=== PATIENT | male | born 1945 | race Caucasian/White ===

== ENCOUNTER → 2016-11-27 | Outpatient (CLI) | payer OTHER ==
[~2016-11-27] MED LIST: ALBU18002 INH; ASPI1TAB83 PO; ATOR-26 PO; BICA50TA6 PO; CALC0.2510 PO; CARV25TA2 PO; CHOL100027 PO; FEBU40TA PO; FENO67CA2 PO; GABA-113 PO; HYDR-4715 PO; IMDSR60 PO; INSDGI SC; ISOS60TA25 PO; LACT12LO28 TOP; LSX80 PO; MCRK20 PO; NTRGSL/4 UT; NVLGI SC; OXYC-57 PO; PLV75 PO; REGULAR INSULIN SQ; TERA1CAP63 PO; TORS20TA2 PO; WARF10TA4 PO; WARF7.5T4 PO; ZRX5 PO; [UNRECOGNIZED DRUG - CODE] IM
[2016-11-27 13:32] LABS: BLOOD UREA NITROGEN 67 mg/dl (7-18); BUN/CREATININE RATIO 17.2 (10-20); CALCIUM 8.5 mg/dl (8.5-10.1); CARBON DIOXIDE 31 mmol/L (21-32); CHLORIDE 103 mmol/L (98-107); GLUCOSE 377 mg/dl (70-99); MAGNESIUM 2.1 mg/dl (1.8-2.4); SODIUM 141 mmol/L (136-145)
[2016-11-27 13:46] LABS: BETA-HYDROXYBUTYRATE 1.19 mg/dL (0.2-2.81)
== END | disposition home or self-care (01) ==
LOC: C.LABMFLN 10:31
PROVIDERS: ATTEND Physician Assistant Medical
DX: I50.22 Chronic systolic (congestive) heart failure (principal)

== ENCOUNTER 2017-05-29 11:06 | Day surgery (SDC) | payer OTHER ==
[2017-05-21 13:35] VITALS: BMI 46.0
--- NOTE | 2017-05-21 14:38 | PAT Medication Instructions ---
Service Date May 21, 2017. Current Home Medication List Albuterol Sulfate (Proair Respiclick), 2 SPRAY INH Q4 PRN for SOB/Wheezing Aspirin (Aspirin), 81 MG PO HS Atorvastatin (Lipitor), 80 MG PO HS Calcitriol (Rocaltrol Cap), 0.25 MCG PO QAM Carvedilol (Coreg), 37.5 MG PO BID Clopidogrel Bisulfate (Clopidogrel), 75 MG PO QAM Febuxostat (Uloric), 1 TAB PO QAM Gabapentin (Neurontin), 900 MG PO TID Hydralazine Hcl (Apresoline), 10 MG PO TIDM Insulin Glargine (Lantus), 80 UNITS SC QAM Isosorbide Mononitrate Ext Rel (Imdur Ext Rel), 60 MG PO QAM Lactic Acid (Ammonium Lactate) (Ammonium Lactate), 1 DOSE TOP UD Metolazone (Metolazone), 1 TAB PO QAM Nitroglycerin (Nitrostat), 0.4 MG UT PRN Potassium Chloride (Klor-Con), 40 MEQ PO BID Torsemide (Demadex), 100 MG PO QAM Warfarin Sod (Jantoven), 7.5 MG PO S,M,T,R,F,SA,MCCARTHY Warfarin Sod (Jantoven), 10 MG PO WED [Regular Insulin], 1 DOSE SQ AC PRN for SLIDING SCALE Medication Instructions For Your Scheduled Surgery - Follow surgeon's instructions for: Warfarin Sod (Jantoven), 7.5 MG PO S,M,T,R,F,SA,MCCARTHY Warfarin Sod (Jantoven), 10 MG PO WED Clopidogrel Bisulfate (Clopidogrel), 75 MG PO QAM Aspirin (Aspirin), 81 MG PO HS -Continue as directed: Nitroglycerin (Nitrostat), 0.4 MG UT PRN - Hold the following medications the morning of surgery: [Regular Insulin], 1 DOSE SQ AC PRN for SLIDING SCALE Potassium Chloride (Klor-Con), 40 MEQ PO BID Torsemide (Demadex), 100 MG PO QAM Lactic Acid (Ammonium Lactate) (Ammonium Lactate), 1 DOSE TOP UD Metolazone (Metolazone), 1 TAB PO QAM Calcitriol (Rocaltrol Cap), 0.25 MCG PO QAM - Take the following medications the morning of surgery with a sip of water: Isosorbide Mononitrate Ext Rel (Imdur Ext Rel), 60 MG PO QAM Carvedilol (Coreg), 37.5 MG PO BID Gabapentin (Neurontin), 900 MG PO TID Febuxostat (Uloric), 1 TAB PO QAM Hydralazine Hcl (Apresoline), 10 MG PO TID Albuterol Sulfate (Proair Respiclick), 2 SPRAY INH Q4 PRN for SOB/Wheezing (if needed, also BRING WITH YOU THE MORNING OF SURGERY) - Take the following medications as scheduled the night before surgery: Atorvastatin (Lipitor), 80 MG PO HS Hydralazine Hcl (Apresoline), 10 MG PO TID Potassium Chloride (Klor-Con), 40 MEQ PO BID Albuterol Sulfate (Proair Respiclick), 2 SPRAY INH Q4 PRN for SOB/Wheezing Carvedilol (Coreg), 37.5 MG PO BID Gabapentin (Neurontin), 900 MG PO TID - For Insulin Dependent Diabetic patients: Test blood sugar A.M. of surgery. - If BLOOD SUGAR IS GREATER THAN 150, take half of your regular dose of: Insulin Glargine (Lantus), 80 UNITS SC QAM - If BLOOD SUGAR IS LESS THAN 150, do not take any: Insulin Glargine ( Lantus), 80 UNITS SC QAM If you have any questions please call us at [phone] or [phone] or [phone]
[2017-05-21 14:57] LABS: BASO % 0.8 %; BASO ABS # 0.04 K/uL (0-0.2); COMPLETE YES; EOS % 1.8 %; HEMATOCRIT 29.6 % (42-52); IG% 0.8 %; LYMPH % 15.6 %; LYMPH ABS # 0.77 K/uL (1.2-3.4); MEAN CELL VOLUME 88.4 fL (80-100); MEAN CORPUSCULAR HGB CONC 32.8 g/dl (32-36); MEAN PLATELET VOLUME 11.1 fL (7.4-10.4); MONO % 8.3 %; NEUT % 72.7 %; PLATELET COUNT 172 K/uL (130-400); RED BLOOD COUNT 3.35 M/uL (4.7-6.1); WHITE BLOOD COUNT 4.95 K/uL (4.8-10.8)
[2017-05-21 15:05] LABS: BUN/CREATININE RATIO 20.4 (10-20); CALCIUM 8.7 mg/dl (8.5-10.1); CREATININE 3.3 mg/dl (0.60-1.40); INR 2.3 (0.9-1.1); PARTIAL THROMBOPLASTIN RATIO 1.5; POTASSIUM 2.7 mmol/L (3.5-5.1); PROTHROMBIN TIME (PATIENT) 25.8 SECONDS (9.0-12.0)
[~2017-05-29] VITALS: Ht 170.2 cm; Wt 134.2 kg
--- NOTE | 2017-05-29 06:18 | History and Physical ---
History & Physical Date of Service May 29, 2017. History & Physical CC: End stage renal disease HPI: Mr. Ignacio is a 71-year-old gentleman with chronic kidney disease who is approaching dialysis. A fistula was recommended. He has a history of type 2 diabetes. He does have neuropathy and retinopathy, along with renal calculi. He also has hypertension, coronary occlusive disease with an ejection fraction of 25-30% with concentric LVH on an echo done in 2013. He has hyperlipidemia. He is status post knee surgery, patella surgery, and BPH. He also has a history of prostatic cancer with x-ray treatment. He does have cardiac stents with a history of 4 MIs, according to the patient and a recent stroke this year. ALLERGIES: No known drug allergies. PAST MEDICAL HISTORY: As stated above is positive for heart disease, hypertension, diabetes, stroke, and renal disease. PAST SURGICAL HISTORY: Includes cardiac stenting, knee surgery, patellar surgery, and x-ray treatment for prostate cancer. MEDICATIONS: Reviewed. He is on numerous medications. No changes were made. REVIEW OF SYSTEMS: Positive for occasional chest pain and shortness of breath, gout, joint swelling, loss of appetite, food intolerance, diarrhea, prostate cancer, and in the HPI. PHYSICAL EXAMINATION: The patient is awake, oriented x3. He is morbidly obese. His blood pressure is 132/60 on the right, 126/54 on the left. Head and neck: carotids, radials and superficial temporal arteries are +2 bilaterally and there are no carotid bruits. Lungs are clear. Heart regular rate and rhythm. Abdominal exam is benign. I cannot appreciate an aortic pulsation due to body habitus. Femorals are +2 bilaterally. Noninvasives done today showed a cephalic vein in the left arm, which is usable at the wrist for a fistula creation. He also is right-handed. ASSESSMENT: Chronic kidney disease. RECOMMENDATIONS: At this point, I recommended a left wrist AV fistula. The patient understood the risks, options, benefits, and agreed to go ahead with this procedure.
[~2017-05-29 11:06] MED LIST changes: -BICA50TA6 PO; +CEFAZOLIN 3000 MG/65 ML D5W 65 ML IV SCH; -CHOL100027 PO; -FENO67CA2 PO; -IMDSR60 PO; -LSX80 PO; +NSS 1000ML IV SCH; -NVLGI SC; -OXYC-57 PO; +SODIUM CHLORIDE 0.9% 1000ML 1,000 ML IV SCH; -TERA1CAP63 PO; -[UNRECOGNIZED DRUG - CODE] IM
--- NOTE | 2017-05-29 11:11 | History & Physical Bridge Note ---
H&P Re-Evaluation Bridge Note: I have examined the patient, reviewed the History & Physical and in the interval since the performance of the History & Physical I have noted the following changes of clinical significance: No changes noted
[2017-05-29 11:54] VITALS: BP 149/63; PULSE 68; TEMP 36.7; O2SAT 98; Ht 170.2 cm; Wt 134.2 kg
[2017-05-29] MEDS ORDERED: PROPOFOL IV EMULSION 10 MG/ML 20 ML VIAL IV ONE (12:27)
[2017-05-29] MEDS ORDERED: FENTANYL CITRATE INJ 50 MCG/1 ML 2 ML VIAL ONE (12:27)
[2017-05-29] MEDS ORDERED: MIDAZOLAM HCL 1 MG/ML 2ML VIAL ONE (12:27)
[2017-05-29] MEDS ORDERED: LIDOCAINE HCL 2% 2 ML VIAL (20MG/ML) ONE (12:27)
[2017-05-29] MEDS ORDERED: ONDANSETRON INJ 2 MG/ML 2 ML VIAL IV PRN (12:30)
[2017-05-29] MEDS ORDERED: EpHEDrine SULFATE INJ 50 MG/ML AMP IV PRN (12:30)
[2017-05-29] MEDS ORDERED: FENTANYL CITRATE INJ 50 MCG/1 ML 2 ML VIAL IV PRN (12:30)
[2017-05-29] MEDS ORDERED: ATROPINE SULFATE 0.1 MG/ML 5ML SYR IV PRN (12:30)
[2017-05-29 12:41] LABS: INR 1.7 (0.9-1.1); PARTIAL THROMBOPLASTIN RATIO 1.3; PROTHROMBIN TIME (PATIENT) 18.7 SECONDS (9.0-12.0)
[2017-05-29 12:51] LABS: BUN/CREATININE RATIO 19.3 (10-20); CALCIUM 8.5 mg/dl (8.5-10.1); CREATININE 2.6 mg/dl (0.60-1.40); POTASSIUM 3.1 mmol/L (3.5-5.1)
[2017-05-29] MEDS ORDERED: LIDOCAINE HCL 1% 20 ML VIAL ONE (13:31)
[2017-05-29] MEDS ORDERED: THROMBIN FOR SOLN 20000 UNIT KIT ONE (13:31)
[2017-05-29] MEDS ORDERED: BUPIVACAINE/EPINEPHRINE 0.5% MPF 1:200,000 30 ML VIAL ONE (13:31)
[2017-05-29] MEDS ORDERED: GELATIN SPONGE 12-7MM ONE (13:31)
[2017-05-29] MEDS ORDERED: HEPARIN SOD (PORCINE) 1000 UNIT/ML 10 ML VIAL ONE (13:32)
--- NOTE | 2017-05-29 14:58 | [facility] Post Operative Brief Note ---
Immediate Operative Summary Operative Date May 29, 2017. Pre-Operative Diagnosis End Stage Renal Disease Post-Operative Diagnosis End Stage Renal Disease Procedure(s) Performed Left Wrist Arteriovenous Fistula Creation Surgeon Dr. Jenkins Project Estimator Surgeon(s) Dr. Lakhani Estimated Blood Loss 10 ML Findings good thrill Specimens None per surgeon Anesthesia MAC Complication(s) None Disposition Recovery Room / PACU
[2017-05-29] MEDS ORDERED: OXYC-57 PO (15:00)
--- NOTE | 2017-05-29 15:02 | Discharge Instructions ---
Discharge Instructions Date of Service May 29, 2017. Visit Reason for Visit: End Stage Renal Disease Discharge Discharge Diagnosis / Problem: End stage renal disease Discharge Goals Goal(s): Therapeutic intervention Activity Recommendations Activity Limitations: per Instructions/Follow-up section Lifting Limitations: none Exercise/Sports Limitations: as tolerated Shower/Bathe: tomorrow Driving or Machine Use: resume 1 day after discharge Anesthesia . Post Anesthesia Instructions: If you have had General Anesthesia or IV Sedation: * Do not drive today. * Resume driving when surgeon permits. * Do not make important decisions or sign legal documents today. * Call surgeon for: 1. Temperature elevations greater than 101 degrees F. 2. Uncontrollable pain. 3. Excessive bleeding. 4. Persistent nausea and vomiting. 5. Medication intolerance (nausea, vomiting or rash). * For nausea and vomiting use only clear liquids such as: tea, soda, bouillon until nausea subsides, then gradually increase diet as tolerated. * If you have any concerns or questions, call your surgeon's office. If physician is unavailable and it is an emergency, call 911 or go to the nearest emergency room. . Instructions / Follow-Up Instructions / Follow-Up Call [phone] to schedule a follow up appointment if one not already scheduled. ACTIVITY RECOMMENDATIONS: See Above SPECIAL CARE INSTRUCTIONS: Call your doctor if: * Temperature above 101 degrees * Pain not relieved by pain medicine ordered * There is increased drainage or redness from any incision * You have any unanswered questions or concerns. Diet Recommendations Recommended Home Diet: resume previous diet Procedures Procedures Performed: Left Wrist Arteriovenous Fistula Creation Pending Studies Studies pending at discharge: no Medical Emergencies . Who to Call and When: Medical Emergencies: If at any time you feel your situation is an emergency, please call 911 immediately. . Non-Emergent Contact Non-Emergency issues call your: Surgeon . . "Provider Documentation" section prepared by Abilio Jenkins. .
--- NOTE | 2017-05-29 15:13 | Anesthesiology Progress Note ---
Anesthesia Post Op Note Date & Time May 29, 2017 at 15:13 Vital Signs Pain Intensity: 0 Vital Signs Past 12 Hours Date Time Temp Pulse Resp B/P (MAP) Pulse Ox O2 Delivery O2 Flow Rate FiO2 05/29/17 11:54 36.7 68 20 149/63 (91) 98 Room Air Notes Mental Status: alert / awake / arousable, participated in evaluation Pt Amnestic to Procedure: No Nausea / Vomiting: adequately controlled Pain: adequately controlled Airway Patency, RR, SpO2: stable & adequate BP & HR: stable & adequate Hydration State: stable & adequate Anesthetic Complications: no major complications apparent Anesthetic Complications: No complications - level of amnesia appropriate for MAC
[2017-05-29] MEDS ORDERED: OXYCODONE/ACETAMINOPHEN 5-325 TAB PO PRN (15:15)
[2017-05-29] MEDS ORDERED: PERCOCET HOME PACK PO ONE (15:15)
[2017-05-29 15:38] VITALS: BP 137/59; PULSE 69; TEMP 36.6; O2SAT 92
--- NOTE | 2017-05-29 15:52 | OPERATIVE REPORT ---
DATE OF OPERATION: 05/29/2017 PREOPERATIVE DIAGNOSIS: End-stage renal disease. POSTOPERATIVE DIAGNOSIS: Same. PROCEDURE: Left wrist radiocephalic fistula. SURGEON: Dr. Abilio Jenkins. BELLOWS CHARGER ASSEMBLER: Dr. Anna Lakhani. ANESTHESIA: Local plus conscious sedation. ESTIMATED BLOOD LOSS: 10 mL. COMPLICATIONS: None apparent. CONDITION: Stable to PACU. INDICATIONS: Mr. Ignacio is a 71-year-old male with end stage renal disease not yet on hemodialysis thought needed in the near future. It was recommended that he undergo permanent hemodialysis access placement. He was advised of the risks and benefits of undergoing a fistula and agreed to undergo this procedure. PROCEDURE: The patient was brought into the operative suite. He was prepped and draped in the usual fashion. Timeout occurred. A longitudinal incision was made in between his cephalic vein and his radial artery. His cephalic vein was identified and dissected out. All branches were ligated. Then attention was turned to his radial artery. This was dissected out. The cephalic vein was ligated distally and transected. This was then inflated with Heparinized saline which the vein distended nicely. The vein was found to be of adequate size. Attention as returned back to the artery. Proximal and distal control were obtained with samll angled DeBakey clamps. Arteriotomy was performed with an 11 blade and extended with Arambula. The cephalic vein was then sewn on with an end-to-side fashion with a Prolene suture. It was inspected for hemostasis which was obtained. There was a good thrill in the fistula. His hand was warm and pink. The wound was closed with 3-0 and 4-0 Vicryl. The patient was then transported to PACU in stable condition. Dr. Abilio Jenkins was present and scrubbed for the entirety of this case. I, Dr. Jenkins was present and scrubbed for the entire procedure. I attest to the content of the Intraoperative Record and any orders documented therein. Any exceptions are noted below. [facility] CENT[facility]
[2017-05-29 16:00] VITALS: BP 149/63; PULSE 69; TEMP 36.6; O2SAT 91
== END 2017-05-29 16:00 | disposition home or self-care (01) ==
LOC: C.ACU 11:06
PROVIDERS: ATTEND Surgery Vascular Surgery
DX: N18.6 End stage renal disease (principal); E11.40 Type 2 diabetes mellitus with diabetic neuropathy, unspecified; E11.319 Type 2 diabetes mellitus with unspecified diabetic retinopathy without macular edema; E11.22 Type 2 diabetes mellitus with diabetic chronic kidney disease; I25.10 Atherosclerotic heart disease of native coronary artery without angina pectoris; E78.5 Hyperlipidemia, unspecified; I12.0 Hypertensive chronic kidney disease with stage 5 chronic kidney disease or end stage renal disease; Z85.46 Personal history of malignant neoplasm of prostate

== ENCOUNTER 2017-12-05 17:07 | Inpatient (IN) | payer OTHER ==
[~2017-12-05] VITALS: Ht 172.7 cm; Wt 132.3 kg
[~2017-12-05 17:07] MED LIST changes: -CEFAZOLIN 3000 MG/65 ML D5W 65 ML IV SCH; -NSS 1000ML IV SCH; -SODIUM CHLORIDE 0.9% 1000ML 1,000 ML IV SCH; -TORS20TA2 PO
[2017-12-05 19:40] VITALS: BP 191/86; PULSE 76; TEMP 36.5; O2SAT 90; BMI 45.6
[2017-12-05] MEDS ORDERED: GLUCOSE 40% GEL 15 GM TUBE PO PRN (20:45)
[2017-12-05] MEDS ORDERED: GLUCOSE 10 TABS/TUBE PO PRN (20:45)
[2017-12-05] MEDS ORDERED: DEXTROSE 50% 50 ML SYR IV PRN (20:45)
[2017-12-05] MEDS ORDERED: GLUCAGON FOR INJ 1 MG VIAL SQ PRN (20:45)
[2017-12-05] MEDS ORDERED: ONDANSETRON 8MG OD TAB PO PRN (20:45)
[2017-12-05 21:08] LABS: BASO % 0.7 %; BASO ABS # 0.03 K/uL (0-0.2); EOS % 2.2 %; EOS ABS # 0.09 K/uL (0-0.5); HEMOGLOBIN 11.2 g/dL (14.0-18.0); IG# 0.04 K/uL (0.00-0.02); LYMPH % 17.9 %; LYMPH ABS # 0.73 K/uL (1.2-3.4); MEAN CELL VOLUME 85.1 fL (80-100); MEAN CORPUSCULAR HEMOGLOBIN 28.9 pg (25-34); MEAN PLATELET VOLUME 10.3 fL (7.4-10.4); MONO % 8.6 %; MONO ABS # 0.35 K/uL (0.11-0.59); NEUT % 69.6 %; NEUT ABS # 2.83 K/uL (1.4-6.5); PLATELET COUNT 127 K/uL (130-400); RED CELL DISTRIBUTION WIDTH CV 16.1 % (11.5-14.5); RED CELL DISTRIBUTION WIDTH SD 49.4 fL (36.4-46.3); WHITE BLOOD COUNT 4.07 K/uL (4.8-10.8)
[2017-12-05 21:10] LABS: MEAN CORPUSCULAR HGB CONC 33.9 g/dl (32-36)
[2017-12-05] MEDS: INSULIN ASPART 100 UNITS/ML 3 ML PEN SC SCH ×2 (21:20→23:58)
[2017-12-05 21:32] LABS: ALBUMIN 3.1 gm/dl (3.4-5.0); CALCIUM 8.1 mg/dl (8.5-10.1); CKMB 10.8 ng/ml (0.5-3.6); CREATININE 2.89 mg/dl (0.60-1.40); POTASSIUM 3.6 mmol/L (3.5-5.1); TOTAL PROTEIN 6.9 gm/dl (6.4-8.2)
[2017-12-05] MEDS ORDERED: ALBUTEROL HFA 8 GM INHALER INH PRN (21:45)
[2017-12-05] MEDS ORDERED: REGULAR INSULIN SQ PRN (21:45)
[2017-12-05] MEDS ORDERED: NITROGLYCERIN 0.4 MG SL PER TAB CHARGE UT SCH (21:45)
[2017-12-05] MEDS ORDERED: PHARMACY GLYCEMIC MGMT CONSULT PRN (22:00)
--- NOTE | 2017-12-05 22:13 | DIAGNOSTIC IMAGING REPORT ---
CHEST ONE VIEW PORTABLE CLINICAL HISTORY: 72 years-old Male presenting with nstemi. TECHNIQUE: Portable upright AP view of the chest was obtained. COMPARISON: 06/12/2014. FINDINGS: Atherosclerosis of aortic arch. Cardiac silhouette mildly enlarged. Bandlike opacity at the right lung base with elevation of the right hemidiaphragm unchanged. No large pleural effusion or pneumothorax. Osseous structures normal. IMPRESSION: 1. Mild cardiomegaly. No gross evidence of volume overload or pulmonary edema. 2. Right basilar scarring or atelectasis. No convincing evidence of acute cardiopulmonary disease. Electronically signed by: Mendez Arevalo M.D. 12/05/2017 10:11 PM Dictated Date/Time: 12/05/2017 10:10 PM
[2017-12-05 22:26] LABS: INR 2.2 (0.9-1.1); PTT PATIENT 37.4 SECONDS (21.0-31.0)
[2017-12-05 23:39] VITALS: BP 168/77; PULSE 68; TEMP 36.9; O2SAT 96
[2017-12-06] MEDS: GABAPENTIN 300 MG CAP PO SCH ×2 (00:08→14:27)
[2017-12-06] MEDS: HydrALAZINE 10 MG TAB PO SCH ×2 (00:12→12:13)
--- NOTE | 2017-12-06 03:07 | History and Physical ---
History & Physical Date & Time of Service: Dec 06, 2017 at 02:31 Chief Complaint: Advanced Kidney Disease, Chest Pain, Positive Primary Care Physician: Anya Black History of Present Illness Source: patient 72M with a PMhx of CAD w stent, VT, h/o prostate CA, DM2 w AV Fistula in left arm, DIANE, CHF, HTN and CHF presents as a transfer from [facility]. Pt states that he got an ache like chest pain that radiated down his right arm starting this morning. Pt states that the ache was constant and only went away after he got to the [place] ER around 10am. He doesn't remember what medication he received that made his pain go away. Patient was in his kitchen when the pain started around 7am. He wasn't doing anything particularly stressful. He hasn't had chest or arm pain since 10am. The patient has had an VT in the past and states that his cardiac pain is distinctly different than the pain the occurred earlier this AM. Past Medical/Surgical History Medical Problems: (1) Chest pain (2) Chest pain (3) CHF (congestive heart failure) (4) Coronary artery disease (5) Diabetes (6) Elevated troponin (7) Non-ST elevated myocardial infarction (non-STEMI) (8) NSTEMI (non-ST elevated myocardial infarction) (9) Prostate cancer (10) Renal insufficiency Surgical Problems: (1) Stented coronary artery Family History noncontributory Social History Smoking Status: Never Smoker Smokeless Tobacco Use: No Alcohol Use: none Drug Use: none Marital Status: Housing status: lives with family Occupational Status: retired Immunizations History of Influenza Vaccine: Yes History of Tetanus Vaccine?: Yes Tetanus Immunization Date: Nov 02, 2002 History of Pneumococcal: Yes Pneumococcal Date: Nov 01, 2006 History of Hepatitis B Vaccine: Unknown Allergies Coded Allergies: No Known Allergies (Unverified , 05/29/17) Home Medications Scheduled Aspirin (Aspirin), 81 MG PO HS Atorvastatin (Lipitor), 80 MG PO HS Calcitriol (Rocaltrol Cap), 0.25 MCG PO QAM Carvedilol (Carvedilol), 50 MG PO BID Clopidogrel Bisulfate (Clopidogrel), 75 MG PO QAM Febuxostat (Uloric), 1 TAB PO QAM Gabapentin (Neurontin), 900 MG PO TID Hydralazine Hcl (Apresoline), 10 MG PO TIDM Insulin Glargine (Lantus), 60 UNIT SC QAM Insulin Regular (Human) (Humulin R U-500 Kwikpen), 100 UNITS SQ QDB Insulin Regular (Human) (Humulin R U-500 Kwikpen), 100 UNITS SQ QDL Insulin Regular (Human) (Humulin R U-500 Kwikpen), 125 UNITS SQ QDD Isosorbide Mononitrate Ext Rel (Imdur Ext Rel), 60 MG PO QAM Lactic Acid (Ammonium Lactate) (Ammonium Lactate), 1 DOSE TOP UD Metolazone (Metolazone), 1 TAB PO QAM Nitroglycerin (Nitrostat), 0.4 MG UT PRN Potassium Chloride (Klor-Con), 40 MEQ PO BID Warfarin Sod (Jantoven), 7.5 MG PO S,M,T,R,F,SA,MCCARTHY Warfarin Sod (Jantoven), 10 MG PO WED Scheduled PRN Albuterol Sulfate (Proair Respiclick), 2 SPRAY INH Q4 PRN for SOB/Wheezing Review of Systems Constitutional: No fever, No chills, No sweats ENT: No hearing loss Respiratory: No cough, No sputum, No wheezing, No shortness of breath Cardiovascular: + chest pain, No edema Abdomen: No pain, No nausea, No vomiting, No diarrhea, No constipation Neurologic: No memory loss Endocrine: No fatigue Integumentary: No rash Physical Exam Vital Signs Date Time Temp Pulse Resp B/P (MAP) Pulse Ox O2 Delivery O2 Flow Rate FiO2 12/06/17 00:00 Nasal Cannula 3.0 12/05/17 23:39 36.9 68 22 168/77 (107) 96 Nasal Cannula 2.5 12/05/17 19:40 36.5 76 18 191/86 (121) 90 Room Air 12/05/17 19:40 90 Nasal Cannula 3.0 12/05/17 19:40 90 Nasal Cannula 3.0 12/05/17 19:40 36.5 76 18 191/86 General Appearance: WD/WN, no apparent distress Head: normocephalic, atraumatic Neck: supple Respiratory/Chest: chest non-tender, lungs clear, normal breath sounds, no respiratory distress, no accessory muscle use Cardiovascular: regular rate, rhythm, no edema, no gallop, no JVD, no murmur, normal peripheral pulses Abdomen/GI: normal bowel sounds, non tender, soft Back: normal inspection, no CVA tenderness Extremities/Musculoskelatal: normal inspection, no calf tenderness, no pedal edema, + pertinent finding (left forearm has an AV fistula) Neurologic/Psych: it architect II-XII nml as tested, no motor/sensory deficits, alert, normal mood/affect, normal reflexes, oriented x 3 Diagnostics Laboratory Results Results Past 24 Hours Test 12/05/17 19:57 12/05/17 20:54 12/05/17 23:50 Range/Units Bedside Glucose 424 341 70-99 mg/dl White Blood Count 4.07 4.8-10.8 K/uL Red Blood Count 3.88 4.7-6.1 M/uL Hemoglobin 11.2 14.0-18.0 g/dL Hematocrit 33.0 42-52 % Mean Corpuscular Volume 85.1 80-100 fL Mean Corpuscular Hemoglobin 28.9 25-34 pg Mean Corpuscular Hemoglobin Concent 33.9 32-36 g/dl Platelet Count 127 130-400 K/uL Mean Platelet Volume 10.3 7.4-10.4 fL Neutrophils (%) (Auto) 69.6 % Lymphocytes (%) (Auto) 17.9 % Monocytes (%) (Auto) 8.6 % Eosinophils (%) (Auto) 2.2 % Basophils (%) (Auto) 0.7 % Neutrophils # (Auto) 2.83 1.4-6.5 K/uL Lymphocytes # (Auto) 0.73 1.2-3.4 K/uL Monocytes # (Auto) 0.35 0.11-0.59 K/uL Eosinophils # (Auto) 0.09 0-0.5 K/uL Basophils # (Auto) 0.03 0-0.2 K/uL RDW Standard Deviation 49.4 36.4-46.3 fL RDW Coefficient of Variation 16.1 11.5-14.5 % Immature Granulocyte % (Auto) 1.0 % Immature Granulocyte # (Auto) 0.04 0.00-0.02 K/uL Prothrombin Time 22.5 9.0-12.0 SECONDS Prothromb Time International Ratio 2.2 0.9-1.1 Activated Partial Thromboplast Time 37.4 21.0-31.0 SECONDS Partial Thromboplastin Ratio 1.4 Sodium Level 138 136-145 mmol/L Potassium Level 3.6 3.5-5.1 mmol/L Chloride Level 100 98-107 mmol/L Carbon Dioxide Level 26 21-32 mmol/L Anion Gap 11.0 3-11 mmol/L Blood Urea Nitrogen 46 7-18 mg/dl Creatinine 2.89 0.60-1.40 mg/dl Est Creatinine Clear Calc Drug Dose 31.7 ml/min Estimated GFR () 24.4 Estimated GFR (Non- 21.0 BUN/Creatinine Ratio 15.8 10-20 Random Glucose 400 70-99 mg/dl Calcium Level 8.1 8.5-10.1 mg/dl Magnesium Level 1.6 1.8-2.4 mg/dl Total Bilirubin 0.4 0.2-1 mg/dl Aspartate Amino Transf (AST/SGOT) 23 15-37 U/L Alanine Aminotransferase (ALT/SGPT) 30 12-78 U/L Alkaline Phosphatase 81 45-117 U/L Total Creatine Kinase 288 39-308 U/L Creatine Kinase MB 10.8 0.5-3.6 ng/ml Creatine Kinase MB Ratio 3.8 0-3.0 Troponin I 2.520 0-0.045 ng/ml Total Protein 6.9 6.4-8.2 gm/dl Albumin 3.1 3.4-5.0 gm/dl Globulin 3.8 2.5-4.0 gm/dl Albumin/Globulin Ratio 0.8 0.9-2 Beta-Hydroxybutyric Acid 1.68 0.2-2.81 mg/dL Diagnostic Radiology CHEST ONE VIEW PORTABLE CLINICAL HISTORY: 72 years-old Male presenting with nstemi. TECHNIQUE: Portable upright AP view of the chest was obtained. COMPARISON: 06/12/2014. FINDINGS: Atherosclerosis of aortic arch. Cardiac silhouette mildly enlarged. Bandlike opacity at the right lung base with elevation of the right hemidiaphragm unchanged. No large pleural effusion or pneumothorax. Osseous structures normal. IMPRESSION: 1. Mild cardiomegaly. No gross evidence of volume overload or pulmonary edema. 2. Right basilar scarring or atelectasis. No convincing evidence of acute cardiopulmonary disease. EKG Normal sinus rhythm - NO ACUTE FINDINGS, reviewed with Dr. Rogers. Impression Assessment and Plan 72M with a PMhx of CAD w stent, VT, DM2, DIANE, Prostate CA, CHF, HTN and CHF presents as a transfer from [facility]. Pt had uptrending Trops in the [place] ER but they checked a Troponin T not a Troponin I. EKG had no acute changes. Chest Pain in setting of CAD w stent Symptom have resolved. EKG from [place] reviewed, no acute ST changes. Trop here was 2.5, cannot compared to [place] due to different Trop Type, Will trend. c/w daily ASA and Lipitor c/w carvedilol 37.5 MG PO BID c/w Plavix c/w Imdur Cardiology Consult in place. Daily EKGs. DM2 Glycemic control consult. HTN - Will monitor. DIANE- CPAP Gout: c/w Uloric. Neuropathy: c/w Gabapentin 900mg TID. DVT Proph: PT is on Coumadin, unclear why, will confirm with patient, will continue Coumadin at present. Dispo - Telemetry Diet: NPO + IVF. Full Code Attending addendum: I have physically seen this patient, have supervised the medical residents activities, and agree with the H&P unless as otherwise noted. Assessment and Plan: CAD/coronary artery stent history/symptomatic NSTEMI/hypertension-- The patient will be admitted to telemetry for serial cardiac enzymes, serial EKG's, cardiac rhythm monitoring and a 2-D echocardiogram with Dopplers. Continue carvedilol 37.5 mg p.o. twice daily, aspirin 81 mg daily, clopidogrel 75 mg daily, and Imdur Heparin drip not ordered since patient on therapeutic Coumadin. Remaining orders as above. Advanced Directives Existing Advance Directive: No Existing Living Will: No Existing Power of Soil Conservation Teacher: No Resuscitation Status VTE Prophylaxis Will order VTE Prophylaxis: Yes Social Service Consult None Apply Resident Involvement: Resident Care Provided Care Provided: Adult Hospital Medicine
[2017-12-06] MEDS ORDERED: D5W AND 1/2NSS + 20MEQ KCL 1,000 ML IV SCH (03:15)
[2017-12-06] MEDS: INSULIN ASPART 100 UNITS/ML 3 ML PEN SC SCH ×3 (04:07→12:21)
[2017-12-06 04:42] VITALS: BP 168/69; PULSE 64; TEMP 36.4; O2SAT 95
[2017-12-06] MEDS ORDERED: INSULIN HUMAN REGULAR SC ONE (04:45)
[2017-12-06] MEDS ORDERED: SODIUM CHLOR 0.45% + 20MEQ KCL 1,000 ML IV SCH (05:00)
[2017-12-06 05:09] LABS: INR 2.4 (0.9-1.1)
[2017-12-06 05:15] VITALS: BP 146/84
[2017-12-06 05:18] LABS: CKMB 8.7 ng/ml (0.5-3.6)
[2017-12-06] MEDS ORDERED: METOLAZONE 5 MG TAB PO SCH (07:00)
[2017-12-06 07:22] VITALS: BP 166/75; PULSE 71; TEMP 36.5; O2SAT 95
[2017-12-06] MEDS ORDERED: CARVEDILOL 12.5 MG TAB PO SCH (09:00)
[2017-12-06] MEDS ORDERED: CLOPIDOGREL BISULFATE 75 MG TAB PO SCH (09:00)
[2017-12-06] MEDS ORDERED: POTASSIUM CHLORIDE 20 MEQ TABCR PO SCH (09:00)
[2017-12-06] MEDS ORDERED: ISOSORBIDE MONONITRATE 60 MG TABCR PO SCH (09:00)
[2017-12-06] MEDS ORDERED: INSULIN GLARGINE SOLOSTAR 100 UNITS/ML 3 ML PEN SC SCH ×2 (09:00)
--- NOTE | 2017-12-06 09:04 | Family Medicine Progress Note ---
Progress Note Date of Service Dec 06, 2017. Subjective Pt evaluation today including: conversation w/ patient Found patient resting comfortably in his bed. Says that he hasn't had any chest symptoms or radiation into his arm since around 9:30 yesterday morning. 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 At present, he says he's hungry and has no particular acute medical concerns. Constitutional: No fever, No chills Respiratory: No cough, No shortness of breath Cardiovascular: No chest pain, No edema Abdomen: No pain, No nausea, No vomiting Neurologic: No weakness Medications Current Inpatient Medications Medications (Trade) Dose Ordered Sig/Connie Route Start Time Stop Time Status Last Admin Dose Admin Ondansetron HCl (Zofran Odt) 8 mg Q6H PRN PO 12/05/17 20:45 01/04/18 20:44 Insulin Aspart (novoLOG ASPART) SLIDING SCALE If C... ACHS SC 12/05/17 21:00 01/04/18 20:59 12/06/17 07:36 7 UNITS Glucose (Glucose 40% Gel) 15-30 GRAMS 15 GRAMS... UD PRN PO 12/05/17 20:45 01/04/18 20:44 Glucose (Glucose Chew Tab) 4-8 Tablets 4 Tabl... UD PRN PO 12/05/17 20:45 01/04/18 20:44 Dextrose (Dextrose 50% 50ML Syringe) 25-50ML OF 50% DW IV FOR... UD PRN IV 12/05/17 20:45 01/04/18 20:44 Glucagon (Glucagon Inj) 1 mg UD PRN SQ 12/05/17 20:45 01/04/18 20:44 Miscellaneous Information (Consult Glycemic Management Pharmacy) 1 ea UD PRN N/A 12/05/17 22:00 01/04/18 21:59 Aspirin (Ecotrin Tab) 81 mg HS PO 12/06/17 21:00 01/05/18 20:59 Atorvastatin Calcium (Lipitor Tab) 80 mg HS PO 12/06/17 21:00 01/05/18 20:59 12/06/17 00:10 80 MG Carvedilol (Coreg Tab) 37.5 mg BID PO 12/06/17 09:00 01/05/18 08:59 12/06/17 00:11 37.5 MG Clopidogrel Bisulfate (plAVix TAB) 75 mg QAM PO 12/06/17 09:00 01/05/18 08:59 12/06/17 08:39 75 MG Gabapentin (Neurontin Cap) 900 mg TID PO 12/06/17 09:00 01/05/18 08:59 12/06/17 00:08 900 MG Hydralazine HCl (Apresoline Tab) 10 mg TIDM PO 12/06/17 07:30 01/05/18 07:29 12/06/17 00:12 10 MG Isosorbide Mononitrate (Imdur Ext Rel Tab) 60 mg QAM PO 12/06/17 09:00 01/05/18 08:59 12/06/17 08:40 60 MG Metolazone (Zaroxolyn Tab) 5 mg DAILY@0700 PO 12/06/17 07:00 01/05/18 06:59 12/06/17 07:33 5 MG Nitroglycerin (Nitrostat Tab) 0.4 mg PRN UT 12/05/17 21:45 01/04/18 21:44 Potassium Chloride (Klor-Con Tab) 40 meq BID17 PO 12/06/17 09:00 01/05/18 08:59 12/06/17 00:09 40 MEQ Warfarin Sodium (Coumadin Tab) 7.5 mg DAILY@1600 PO 12/06/17 16:00 01/05/18 15:59 12/06/17 00:47 7.5 MG Albuterol (Ventolin Hfa Inhaler) 2 puffs Q4 PRN INH 12/05/17 21:45 01/04/18 21:44 Potassium Chloride/Sodium Chloride 1,000 ml @ 100 mls/hr Q10H IV 12/06/17 05:00 01/05/18 04:59 12/06/17 04:54 100 MLS/HR Insulin Glargine (Lantus Solostar Pen) 40 units QAM SC 12/06/17 09:00 01/05/18 08:59 Objective Vital Signs Date Time Temp Pulse Resp B/P (MAP) Pulse Ox O2 Delivery O2 Flow Rate FiO2 12/06/17 07:22 36.5 71 20 166/75 (105) 95 2.0 12/06/17 05:15 146/84 (104) 12/06/17 04:42 36.4 64 20 168/69 (102) 95 Nasal Cannula 2.5 12/06/17 04:00 Nasal Cannula 3.0 12/06/17 00:00 Nasal Cannula 3.0 12/05/17 23:39 36.9 68 22 168/77 (107) 96 Nasal Cannula 2.5 12/05/17 19:40 36.5 76 18 191/86 (121) 90 Room Air 12/05/17 19:40 90 Nasal Cannula 3.0 12/05/17 19:40 90 Nasal Cannula 3.0 12/05/17 19:40 36.5 76 18 [id number] Physical Exam Notes: General Appearance: Awake, alert & oriented, comfortable in general, NAD. CV: +S1S2 RRR, no murmur. No peripheral edema. Pulm: Clear to auscultation throughout. Abdomen: +BS, soft, non-tender, non-distended. Morbid obese habitus. Extremities: No pedal edema or calf tenderness. Moving all extremities naturally and easily. Neuro: No gross neuro deficits. Lines: PIV. Laboratory Results 12/05/17 20:54 Red Blood Count 3.88, Mean Corpuscular Volume 85.1, Mean Corpuscular Hemoglobin 28.9, Mean Corpuscular Hemoglobin Concent 33.9, Mean Platelet Volume 10.3, Neutrophils (%) (Auto) 69.6, Lymphocytes (%) (Auto) 17.9, Monocytes (%) (Auto) 8.6, Eosinophils (%) (Auto) 2.2, Basophils (%) (Auto) 0.7, Neutrophils # (Auto) 2.83, Lymphocytes # (Auto) 0.73, Monocytes # (Auto) 0.35, Eosinophils # (Auto) 0.09, Basophils # (Auto) 0.03 12/05/17 20:54 Test 12/05/17 20:54 12/06/17 04:39 12/06/17 07:11 12/06/17 07:47 White Blood Count 4.07 K/uL (4.8-10.8) Red Blood Count 3.88 M/uL (4.7-6.1) Hemoglobin 11.2 g/dL (14.0-18.0) Hematocrit 33.0 % (42-52) Mean Corpuscular Volume 85.1 fL (80-100) Mean Corpuscular Hemoglobin 28.9 pg (25-34) Mean Corpuscular Hemoglobin Concent 33.9 g/dl (32-36) Platelet Count 127 K/uL (130-400) Mean Platelet Volume 10.3 fL (7.4-10.4) Neutrophils (%) (Auto) 69.6 % Lymphocytes (%) (Auto) 17.9 % Monocytes (%) (Auto) 8.6 % Eosinophils (%) (Auto) 2.2 % Basophils (%) (Auto) 0.7 % Neutrophils # (Auto) 2.83 K/uL (1.4-6.5) Lymphocytes # (Auto) 0.73 K/uL (1.2-3.4) Monocytes # (Auto) 0.35 K/uL (0.11-0.59) Eosinophils # (Auto) 0.09 K/uL (0-0.5) Basophils # (Auto) 0.03 K/uL (0-0.2) RDW Standard Deviation 49.4 fL (36.4-46.3) RDW Coefficient of Variation 16.1 % (11.5-14.5) Immature Granulocyte % (Auto) 1.0 % Immature Granulocyte # (Auto) 0.04 K/uL (0.00-0.02) Activated Partial Thromboplast Time 37.4 SECONDS (21.0-31.0) Partial Thromboplastin Ratio 1.4 Anion Gap 11.0 mmol/L (3-11) Est Creatinine Clear Calc Drug Dose 31.7 ml/min Estimated GFR () 24.4 Estimated GFR (Non- 21.0 BUN/Creatinine Ratio 15.8 (10-20) Calcium Level 8.1 mg/dl (8.5-10.1) Magnesium Level 1.6 mg/dl (1.8-2.4) Total Bilirubin 0.4 mg/dl (0.2-1) Aspartate Amino Transf (AST/SGOT) 23 U/L (15-37) Alanine Aminotransferase (ALT/SGPT) 30 U/L (12-78) Alkaline Phosphatase 81 U/L (45-117) Total Protein 6.9 gm/dl (6.4-8.2) Albumin 3.1 gm/dl (3.4-5.0) Globulin 3.8 gm/dl (2.5-4.0) Albumin/Globulin Ratio 0.8 (0.9-2) Beta-Hydroxybutyric Acid 1.68 mg/dL (0.2-2.81) Prothrombin Time 24.6 SECONDS (9.0-12.0) Prothromb Time International Ratio 2.4 (0.9-1.1) Total Creatine Kinase 304 U/L (39-308) Creatine Kinase MB 8.7 ng/ml (0.5-3.6) Creatine Kinase MB Ratio 2.9 (0-3.0) Troponin I 2.290 ng/ml (0-0.045) Bedside Glucose 242 mg/dl (70-99) Resident Tracking Resident Involvement: Resident Care Provided Care Provided: Adult Hospital Medicine (inpatient)
[2017-12-06 09:12] LABS: HEMOGLOBIN A1C 8.9 % (4.5-5.6)
--- NOTE | 2017-12-06 10:13 | Clinical Documentation Query ---
CLINICAL DOCUMENTATION QUERY QUERY 1 OF 2 72 yo male with hx CAD, cardiac stent, OK and HTN presents with troponins of 2.290 and 2.520. EKG shows septal infarct and nonspecific T wave abnormality. In your clinical opinion is this patient being managed for: ( ) NSTEMI ( x ) Not Agree- see notes ( ) Other explanation of clinical findings (Please Explain) ( ) Unable to determine (Please Define) ( ) Need to Discuss The medical record reflects the following clinical findings, treatment, and risk factors. Clinical Indicators: As above Treatment: Telemetry, serial troponins, O2, Cardiology consult, serial EKGs Risk Factors: Age, CAD, OK, HTN, DIANE QUERY 2 OF 2 Patient's GFR over past year range from 18.1 to 24.1. Creatinine levels range 3.30 to 2.60. In your clinical opinion is this patient being managed for: (x ) Chronic kidney disease, stage 4 ( ) Not Agree ( ) Other explanation of clinical findings (Please Explain) ( ) Unable to determine (Please Define) ( ) Need to Discuss The medical record reflects the following clinical findings, treatment, and risk factors. Clinical Indicators: As above Treatment: IV hydration Risk Factors: Age, HTN, CHF Please clarify and document your clinical opinion in the progress notes and discharge summary. Terms such as "probable", "suspected", "likely", "questionable", "possible", or "still to be ruled out" are acceptable. IF IN AGREEMENT, YOU MUST DOCUMENT ABOVE DIAGNOSTIC STATEMENT IN DAILY PROGRESS NOTES AND DISCHARGE SUMMARY. This document is not part of the patient's record. Thank You, Joanna Ford RN [phone]
[2017-12-06 11:32] VITALS: BP 170/71; PULSE 66; TEMP 36.4; O2SAT 92
[2017-12-06 12:54] VITALS: Ht 172.7 cm; Wt 132.3 kg
[2017-12-06] MEDS ORDERED: HUMULIN-R U-500 100 UNITS in SYRINGE 0 ML SC ONE (13:00)
--- NOTE | 2017-12-06 13:20 | Pharmacy Progress Note ---
Glycemic Control Intl Consult Date of Service Dec 06, 2017. Scope Glycemic Pharmacist consulted by Dr Faye on 12/05/17 for glycemic control and to write orders per formerly [facility] inpatient glycemic control protocol Objective Weight (Kilograms): 132.300 Accuchecks BSG (last 24hrs): Test 12/05/17 19:57 12/05/17 20:54 12/05/17 23:50 12/06/17 03:59 Bedside Glucose 424 mg/dl (70-99) 341 mg/dl (70-99) 264 mg/dl (70-99) Random Glucose 400 mg/dl (70-99) Test 12/06/17 07:11 Bedside Glucose 242 mg/dl (70-99) Laboratory Data (last 24hrs) Test 12/05/17 20:54 12/06/17 07:47 Anion Gap 11.0 mmol/L BUN/Creatinine Ratio 15.8 Blood Urea Nitrogen 46 mg/dl Creatinine 2.89 mg/dl Potassium Level 3.6 mmol/L Sodium Level 138 mmol/L White Blood Count 4.07 K/uL Red Blood Count 3.88 M/uL Hemoglobin 11.2 g/dL Hematocrit 33.0 % Mean Corpuscular Volume 85.1 fL Mean Corpuscular Hemoglobin 28.9 pg Mean Corpuscular Hemoglobin Concent 33.9 g/dl Platelet Count 127 K/uL Mean Platelet Volume 10.3 fL Neutrophils (%) (Auto) 69.6 % Lymphocytes (%) (Auto) 17.9 % Monocytes (%) (Auto) 8.6 % Eosinophils (%) (Auto) 2.2 % Basophils (%) (Auto) 0.7 % Neutrophils # (Auto) 2.83 K/uL Lymphocytes # (Auto) 0.73 K/uL Monocytes # (Auto) 0.35 K/uL Eosinophils # (Auto) 0.09 K/uL Basophils # (Auto) 0.03 K/uL HbA1c Test 12/06/17 07:47 Recent Pertinent Medications Outpatient Anti-diabetic Regimen: * Lantus 60 units qAM * U-500 ... 100 units with breakfast and lunch; 125 units with dinner plus correction factor * please note this information was not known in the morning whenever Lantus was dosed. Pharmacy was notified by critical care educator that patient stated he took U-500 insulin. Patient's information confirmed with information from [employer] scanned into patient's chart. * A1c = 8.9 % 12/06/17 The patient is currently receiving: * Basal insulin: Lantus 80 units every 24 hours in the morning ( no doses given) * Correctional Insulin: Novolog Correction per scale ACHS Goal Range: Low 110 mg/dL - High 140 mg/dL Correction Factor: 15 mg/dL/unit * Prandial insulin: Per carb ratio of 1 unit per 6 grams CHO consumed Risk Factors for Insulin Resistance: * Diet: NPO except meds; changed to a diet for lunch Assessment & Plan ASSESSMENT: * Mr David Ignacio is a 72 y/o M with a PMH of CAD with stents, prostate cancer, CHF, HTN, DIANE, and type 2 diabetes with unknown control (goal HbA1C according to the Elements of Diabetes Care Scoring Scale is 7.6-8.0%). He is admitted with chest pain and elevated troponins. * The patient has not been admitted into the system since 2013. [employer] supports the patient giving himself at least 60 units of Lantus/day. Therefore, I am comfortable with reducing Lantus to 40 units daily (half of reported 80 units of Lantus; full dose weight-based stress of 2 as well). * PLEASE NOTE information regarding U-500 was not available until lunchtime whenever critical care educator spoke with patient and the information was confirmed with documents scanned into the patient's chart. Gave full dose of U-500 with lunch as patient had already missed U-500 for breakfast and a lower dose of Lantus was given. If still here for dinner will give 65% of the home dose to make up for less insulin. * For Novolog, since patient receives at least 350 units of insulin per day utilize correction factor of 5 mg/dL/unit. Remove carbohydrate ratio as this is covered by U-500. * HbA1C ordered with AM labs today PLAN FOR INPATIENT GLYCEMIC CONTROL: * Basal insulin with LANTUS 40 units SQ this morning and subsequent doses based upon response * Correctional Insulin with NOVOLOG per scale ACHS or Q6hrs while NPO * Goal Range: Low 120 mg/dL - High 160 mg/dL * Correction Factor: 5 mg/dL/unit * Nutritional / Prandial insulin per carb ratio of 1 unit per -- grams CHO consumed * U-500 insulin: 100 units with lunch and 80 units with dinner today OUTPATIENT RECOMMENDATIONS * Strongly recommend that patient follow-up with [facility] to work on improving blood sugar control. Thank you.
[2017-12-06] MEDS ORDERED: INSDGI SC (13:21)
[2017-12-06] MEDS ORDERED: INSU1SOL SQ ×3 (13:24→13:25)
[2017-12-06] MEDS ORDERED: MAGNESIUM OXIDE 400 MG TAB PO ONE (13:30)
--- NOTE | 2017-12-06 13:51 | CARDIOLOGY CONSULTATION ---
DATE OF CONSULTATION: 12/06/2017 PERTINENT HISTORY: Mr. Ignacio is a 72-year-old white male with a complex past medical history who was transferred from [place] [facility] yesterday with a chest pain syndrome and an elevated troponin. This consultation was ordered to assist in his management. The patient was in his usual state of health until yesterday morning at 7:30 a.m. The patient had just awoken and was in the kitchen cleaning out his CPAP mask. He had the acute onset of a right-sided chest, abdominal, and upper extremity discomfort which was quite severe. There are no other associated symptoms such as nausea, vomiting, shortness of breath, or diaphoresis. The patient sat down in his easy chair and immediately realized that he had to use the bathroom. The patient had an episode of profuse diarrhea. He attributed this to a burrito he ate at [employer] the day prior. In any event, his right-sided discomfort as described continued. He called 911. When the nurse case manager arrived at his home, his blood pressure was elevated at 220/110. The patient had not taken any medications that morning. He was immediately taken to the Emergency Room for further care. The patient did receive several sublingual nitroglycerin tablets with a little change in his symptoms as described. At 9:30 a.m., his discomfort spontaneously resolved. He was "ready for the discharge papers." However, his elevated troponin was identified and he was sent to our institution for further care. The patient has not experienced recent exertional angina pectoris. He did have a hospitalization back in September for decompensated congestive heart failure. This was likely secondary to indiscretion with salt. Echocardiogram at that time noted an ejection fraction of 25-30% with a distal anterior wall and inferior wall motion abnormality. There is evidence of moderate left ventricular hypertrophy and diastolic dysfunction. The patient does follow daily weights at home. His "dry" weight is 295 pounds with a "trigger" weight of 298 pounds. He typically takes torsemide 200 mg daily and Zaroxolyn 5 mg every Saturday, Saturday and Saturday. He has managed his volume status well since his admission in September. The patient's cardiac history began in 2008 when he presented with an acute coronary syndrome. He had 2 bare metal stents placed in the left circumflex coronary artery. He had several other admissions with non-ST elevation MO and was treated conservatively. This was October 2010 and December 2013. The patient did have a cardiac catheterization performed in October 2014, in [place]. He had 2 drug-eluting stents placed at that time. One was in the proximal LAD (3.0 x 38 Alpine), and another in the proximal LCX (3.0 x 12 Alpine). He was also found to have total occlusions of the distal LAD, distal PDA, and a posterolateral branch. Currently, the patient is resting comfortably in the bedside chair and without complaints. He is anxious for hospital discharge. PAST MEDICAL HISTORY: 1. Coronary artery disease -- see above. 2. LCX bare metal stents x 2-2008. 3. Proximal LAD drug-eluting stent -- October 2014. 4. Proximal LCX drug-eluting stent -- October 2014. 5. Ischemic cardiomyopathy -- 25-30%. 6. Chronic systolic CHF. 7. Left ventricular apical thrombus -- January 2017. 8. 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 9. Hypertension. 10. Moderate LVH. 11. Hypercholesterolemia. 12. Diabetes mellitus. 13. Chronic renal failure. 14. Prostate carcinoma -- XRT. 15. Obstructive sleep apnea. 16. Gout. 17. Polyneuropathy. 18. Thrombocytopenia. MEDICATIONS: 1. Carvedilol 37.5 mg b.i.d. 2. Hydralazine 10 mg t.i.d. 3. Imdur 60 mg daily. 4. Metolazone 5 mg daily. 5. Potassium 40 mEq b.i.d. 6. Aspirin 81 mg per day. 7. Atorvastatin 80 mg at bedtime. 8. Coumadin 7.5 mg daily. 9. Plavix 75 mg per day. 10. Gabapentin 900 mg t.i.d. 11. Lantus insulin 40 units q.a.m. ALLERGIES: None. SOCIAL HISTORY: The patient is and lives with his . Retired . Does not use tobacco or alcohol. FAMILY HISTORY: Mother in her 80s from Alzheimer dementia. Father at 64 from an MO. REVIEW OF SYSTEMS: A 10-point review of systems was negative except for that described above. PHYSICAL EXAMINATION: GENERAL: This is an obese white male seated in the bedside chair without complaints. VITAL SIGNS: Blood pressure is 146/84 with a regular pulse of 70, respiration rate is 20 and the patient is afebrile at 36.5 degrees. Saturations 95% on 2 liters nasal cannula. HEENT: Negative. NECK: Supple with full carotid upstrokes. No carotid bruits. Jugular venous pressure is flat at 90 degrees. There is no thyromegaly. CARDIOVASCULAR: Reveals a regular rhythm with a normal S1 and S2. Heart sounds are distant. No obvious murmurs. No S3. LUNGS: Clear without rales, rhonchi, or wheeze. ABDOMEN: Obese without bruits. EXTREMITIES: Reveal 2+ pitting edema to the knees bilaterally. DATA: CBC notes a hemoglobin of 11.2, hematocrit 33.0, white count 4.07, and platelet count 127,000. Electrolytes notes a sodium of 138, potassium of 3.6, chloride 100, bicarbonate 26, BUN 46, creatinine 2.89, and glucose 341. Initial troponin was 2.52 with a followup value of 2.29. CK is 288 with an MB fraction of 10.8. AST is 23 with an ALT of 30. Magnesium level is low at 1.6. INR is 2.4. EKG notes sinus rhythm, possible old anteroseptal myocardial infarction, QT prolongation. Chest x-ray shows cardiomegaly but no acute disease. IMPRESSION: Mr. Ignacio presented to [facility] with a right-sided chest, abdominal, and upper extremity discomfort. This lasted for a total of 2 hours and resolved spontaneously. His initial blood pressure was significantly elevated. Suspect that this minor troponin leak is likely a supply demand mismatch phenomena. Doubt this represents significant coronary ischemia. Would ambulate Mr. Ignacio and discharge if stable. As noted previously, we have been following conservative medical care due to his numerous comorbidities, and his significant renal insufficiency. PLAN: 1. Resume usual outpatient cardiac medications. 2. Ambulate in the hallway. 3. Discharge to home if stable. 4. Scheduled for follow up with me later this spring. An echocardiogram will be performed prior to that appointment deciding whether an implantable device is indicated.
[2017-12-06] MEDS ORDERED: CRG25 PO (14:14)
--- NOTE | 2017-12-06 14:21 | Discharge Instructions ---
Discharge Instructions Date of Service Dec 06, 2017. Admission Reason for Admission: Advanced Kidney Disease, Chest Pain, Positive Discharge Discharge Diagnosis / Problem: Chest pain, elevated troponin Discharge Goals Goal(s): Increase independence, Improve disease control, Learn about illness Activity Recommendations Activity Limitations: per Instructions/Follow-up section . Instructions / Follow-Up Instructions / Follow-Up You were transferred for further evaluation of your chest pain and elevated troponin (the blood test as a marker for potential heart damage or heart attack) . You were evaluated by Dr. Delarosa, your used car manager, who recommended you continue to follow up with him as well as your primary care provider. - The only change to your medication during this hospitalization was to increase your coreg from 37.5 mg twice a day to 50 mg twice a day. A new prescription was sent to your pharmacy. - As you know, your blood sugars are not under optimal control. For example, your HbA1c level was 8.9. Please follow up with your primary care provider for post-hospital care as well as overall medical care. Their office should call you shortly to arrange for an appointment next week. - You also have an appointment with cardiology for December 24. - Please go to the nearest emergency department if you have any new or concerning chest pains (even if they are on the right side of your chest), any difficulty breathing, tingling into your arm again, or with any other emergent medical concerns. Current Hospital Diet Patient's current hospital diet: Diabetes Type 2 Diet, AHA Diet (Heart Healthy) , Low Sodium Diet (2gm Na) Discharge Diet Recommended Diet: AHA Diet (Heart Healthy), Low Sodium Diet (2gm Na), Diabetes Type 2 Diet Pending Studies Studies pending at discharge: no Laboratory Results Hemoglobin A1c Test 12/06/17 07:47 Range/Units Estimated Average Glucose 209 mg/dl Hemoglobin A1c 8.9 H 4.5-5.6 % Medical Emergencies . Who to Call and When: Medical Emergencies: If at any time you feel your situation is an emergency, please call 911 immediately. . Non-Emergent Contact Non-Emergency issues call your: Primary Care Provider, Sofa Inspector .
--- NOTE | 2017-12-06 14:27 | Discharge Summary ---
Discharge Summary Date of Service Dec 06, 2017. Discharge Summary Admission Date: Dec 05, 2017 at 19:05 Discharge Date: Dec 06, 2017 Discharge Disposition: Home Principal Diagnosis: Elevated troponin Problems/Secondary Diagnoses: - Chest pain - Diabetes Mellitus Type 2 Immunizations: Have You Had Influenza Vaccine: Yes History of Tetanus Vaccine?: Yes Tetanus Immunization Date: Nov 02, 2002 History of Pneumococcal: Yes Pneumococcal Date: Nov 01, 2006 History of Hepatitis B Vaccine: Unknown Procedures: 05Dec2017 - CHEST ONE VIEW PORTABLE IMPRESSION: 1. Mild cardiomegaly. No gross evidence of volume overload or pulmonary edema. 2. Right basilar scarring or atelectasis. No convincing evidence of acute cardiopulmonary disease. Consultations: 06Dec2017 - Cardiology consultation a/p IMPRESSION: - Mr. Ignacio presented to [facility] with a right-sided chest, abdominal, and upper extremity discomfort. This lasted for a total of 2 hours and resolved spontaneously. His initial blood pressure was significantly elevated. Suspect that this minor troponin leak is likely a supply demand mismatch phenomena. Doubt this represents significant coronary ischemia. Would ambulate Mr. Ignacio and discharge if stable. - As noted previously, we have been following conservative medical care due to his numerous comorbidities, and his significant renal insufficiency. PLAN: 1. Resume usual outpatient cardiac medications. 2. Ambulate in the hallway. 3. Discharge to home if stable. 4. Scheduled for follow up with me later this spring. An echocardiogram will be performed prior to that appointment deciding whether an implantable device is indicated. Medication Reconciliation New Medications: Carvedilol (Carvedilol) 25 Mg Tab 50 MG PO BID for 30 Days, #120 TAB 0 Refills Continued Medications: Albuterol Sulfate (Proair Respiclick) 108 Mcg/Act Aer 2 SPRAY INH Q4 PRN for SOB/Wheezing Aspirin (Aspirin) 81 Mg Tab 81 MG PO HS Atorvastatin (Lipitor) 80 Mg Tab 80 MG PO HS, TAB Calcitriol (Rocaltrol Cap) 0.25 Mcg Cap 0.25 MCG PO QAM, CAP Clopidogrel Bisulfate (Clopidogrel) 75 Mg Tab 75 MG PO QAM Febuxostat (Uloric) 40 Mg Tab 1 TAB PO QAM for 90 Days, #90 TAB 3 Refills Gabapentin (Neurontin) 300 Mg Cap 900 MG PO TID, CAP Hydralazine Hcl (Apresoline) 10 Mg Tab 10 MG PO TIDM, TAB Insulin Glargine (Lantus) 100 Unit/Ml Inj 60 UNIT SC QAM, VIAL Insulin Regular (Human) (Humulin R U-500 Kwikpen) 500 Unit/Ml Mariza 100 UNITS SQ QDB Insulin Regular (Human) (Humulin R U-500 Kwikpen) 500 Unit/Ml Mariza 100 UNITS SQ QDL Insulin Regular (Human) (Humulin R U-500 Kwikpen) 500 Unit/Ml Mariza 125 UNITS SQ QDD Isosorbide Mononitrate Ext Rel (Imdur Ext Rel) 60 Mg Ertab 60 MG PO QAM, TAB Lactic Acid (Ammonium Lactate) (Ammonium Lactate) 12 % Lot 1 DOSE TOP UD Metolazone (Metolazone) 5 Mg Tab 1 TAB PO QAM Nitroglycerin (Nitrostat) 0.4 Mg Tab 0.4 MG UT PRN, BTL Potassium Chloride (Klor-Con) 20 Meq Tabcr 40 MEQ PO BID, TAB Warfarin Sod (Jantoven) 7.5 Mg Tab 7.5 MG PO S,M,T,R,F,SA,MCCARTHY, TAB Warfarin Sod (Jantoven) 10 Mg Tab 10 MG PO WED, TAB Discontinued Medications: Carvedilol (Coreg) 25 Mg Tab 37.5 MG PO BID, TAB TAKE THIS MEDICATION WITH FOOD. Discharge Exam General Appearance: Awake, alert & oriented, comfortable in general, NAD. CV: +S1S2 RRR, no murmur. No peripheral edema. Pulm: Clear to auscultation throughout. Abdomen: +BS, soft, non-tender, non-distended. Morbid obese habitus. Extremities: No gross pedal edema or calf tenderness, but does have some chronic non-erythematous skin changes on shins and feet. Moving all extremities naturally and easily. Neuro: No gross motor neuro deficits. 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 Pt states that he got an ache like chest pain that radiated down his right arm starting this morning. Pt states that the ache was constant and only went away after he got to the [place] ER around 10am. He doesn't remember what medication he received that made his pain go away. Patient was in his kitchen when the pain started around 7am. He wasn't doing anything particularly stressful. He hasn't had chest or arm pain since 10am. The patient has had an AR in the past and states that his cardiac pain is distinctly different than the pain the occurred earlier this AM. Discharge summary on afternoon of 06Dec2017 72 yo male transferred from [facility] on 05Dec2017 for elevated troponin. PMH: CAD with stents x4, ischemic cardiomyopathy (25-30%), AR, HTN, HLD, DM2, polyneuropathy, DIANE, chronic systolic CHF, prostate cancer s/p XRT, anemia, thrombocytopenia, embolic CVA, gout. 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 TnI at [facility] has been 2.52, 2.29, and 1.57. Patient denies any chest symptoms since around 9:30 yesterday () morning. Denies any present radiation into arm, SOB, or other acute symptomatic concerns. Serial EKG's have been NSR without clear evidence of ischemia or infarction. Did have a QTc of 517 on one of them, though. Able to ambulate here without symptoms as well. Cardiology consulted, see their full note (with a/p excerpt as above). TnI likely due to supply-demand mismatch. Do not suspect NSTEMI at this time. - Will increase his carvedilol to 50 mg PO BID (is an option due to his increased BMI). - Discussed the role of stress (notably due to his daughter's recent prolonged hospitalization) contributing to his elevated blood pressure and chest pain risk. - Recommended he check his blood pressure twice a day until he has close follow- up with his PCM. Their office stated they would contact him for scheduling. - Has a cardiology f/u appt for 24Apr as well. - Emergent return precautions reiterated. Patient agreed with overall plan. No acute inpatient changes regarding the multitude of his other ongoing medical issues. However, his HbA1c was 8.9 here, and patient is aware he could benefit from tighter control. Recommended discussing with PCM. Resident Physician Supervision Note: I interviewed and examined the patient. Discussed with Dr. Laura and agree with findings and plan as documented in the note. Any exceptions or clarifications are listed here: None Documented By: Jean Nunez feeling good wants to go home discussed troponin elevation and if just demand ischemia still significant enough to work on better supply/demand dynamics for now increase coreg discussed adrs viatls noted nad breathing unlabored no pallor or icterus demand ischemia - stable for home, increase coreg, follow BP frequently at home - consider increase in imdur if BP still up. Total Time Spent: Greater than 30 minutes This includes examination of the patient, discharge planning, medication reconciliation, and communication with other providers. Discharge Instructions Please refer to the electronic Patient Visit Report (Discharge Instructions) for additional information. Additional Copies To Anya Black
[2017-12-06 15:12] VITALS: BP 170/71; PULSE 66; TEMP 36.4; O2SAT 92
[2017-12-06] MEDS ORDERED: WARFARIN SOD 7.5 MG TAB PO SCH (16:00)
[2017-12-06] MEDS ORDERED: HUMULIN-R U-500 80 UNITS in SYRINGE 0 ML SC SCH (16:45)
[2017-12-06] MEDS ORDERED: CARVEDILOL 25 MG TAB PO SCH (21:00)
[2017-12-06] MEDS ORDERED: ATORVASTATIN 40 MG TAB PO SCH (21:00)
[2017-12-06] MEDS ORDERED: MAGNESIUM OXIDE 400 MG TAB PO SCH (21:00)
[2017-12-06] MEDS ORDERED: ASPIRIN 81 MG ECTAB PO SCH (21:00)
== END 2017-12-06 15:47 | disposition home or self-care (01) | DRG 311 ==
LOC: C.2T 19:05
PROVIDERS: ADMIT Internal Medicine; ATTEND Family Medicine
DX: I24.8 Other forms of acute ischemic heart disease (principal); I50.22 Chronic systolic (congestive) heart failure; Z68.42 Body mass index [BMI] 45.0-49.9, adult; I11.0 Hypertensive heart disease with heart failure; I25.10 Atherosclerotic heart disease of native coronary artery without angina pectoris; I25.2 Old myocardial infarction; E11.42 Type 2 diabetes mellitus with diabetic polyneuropathy; G47.33 Obstructive sleep apnea (adult) (pediatric); N28.9 Disorder of kidney and ureter, unspecified; E78.00 Pure hypercholesterolemia, unspecified; E66.3 Overweight; Z79.899 Other long term (current) drug therapy; Z79.01 Long term (current) use of anticoagulants; Z79.4 Long term (current) use of insulin; Z79.82 Long term (current) use of aspirin; Z95.5 Presence of coronary angioplasty implant and graft; Z85.46 Personal history of malignant neoplasm of prostate; Z86.73 Personal history of transient ischemic attack (TIA), and cerebral infarction without residual deficits; Z82.49 Family history of ischemic heart disease and other diseases of the circulatory system; Z82.0 Family history of epilepsy and other diseases of the nervous system